=== PATIENT | male | born 1960 | race Caucasian/White ===

== ENCOUNTER 2020-03-14 14:31 | Emergency (ER) | payer MEDICAID ==
[~2020-03-14] VITALS: Ht 177.8 cm; Wt 104.5 kg
[2020-03-14 14:36] VITALS: BP 136/97
[2020-03-14] MEDS ORDERED: LISI-662 PO (14:41)
== END 2020-03-14 16:53 | disposition left against medical advice (07) ==
LOC: EMS 14:40
DX: R50.9 Fever, unspecified (principal); Z53.21 Procedure and treatment not carried out due to patient leaving prior to being seen by health care provider

== ENCOUNTER 2020-03-14 19:19 | Emergency (ER) | payer MEDICAID ==
[~2020-03-14] VITALS: Ht 177.8 cm; Wt 92.3 kg
[~2020-03-14 19:19] MED LIST: LISI-662 PO
[2020-03-14 19:28] VITALS: BP 158/99
[2020-03-14] MEDS ORDERED: ACETAMINOPHEN 500 MG TABLET PO ONE (19:45)
== END 2020-03-14 20:22 | disposition left against medical advice (07) ==
LOC: EMS 19:19
DX: R50.9 Fever, unspecified (principal); Z53.21 Procedure and treatment not carried out due to patient leaving prior to being seen by health care provider